=== PATIENT | male | born 1970 | race Caucasian/White ===

== ENCOUNTER 2018-09-08 17:42 | Outpatient (REF) | payer BC, SELFPAY ==
[2018-09-08 21:56] LABS: ALT 36 U/L (12-78); Alkaline Phosphatase 66 U/L (46-116); Anion Gap 9.4 mmol/L (3-11); BUN 18 mg/dL (7-18); Bilirubin, Total 0.5 mg/dL (0.2-1.0); CO2 29.6 mmol/L (21.0-32.0); CREATININE 0.93 mg/dL (0.70-1.30); Calcium 8.5 mg/dL (8.5-10.1); Chloride 103 mmol/L (98-107); Folate 17.1 ng/mL (8.6-20.0); Glucose 155 mg/dL (70-100); Sodium 142 mmol/L (136-145); Total Protein 7.3 g/dL (6.4-8.2)
[2018-09-08 21:57] LABS: Hemoglobin A1C 6.4 % (4.5-6.2)
[2018-09-08 22:28] LABS: ESR 12 MM/HR (0-15)
[2018-09-08 23:08] LABS: Vitamin B12 441 pg/mL (193-986)
[2018-09-08 23:52] LABS: AST 23 U/L (15-37); C-Reactive Protein 0.51 mg/dL (0.0-0.3)
== END 2018-09-08 18:02 ==
LOC: NCHCN 17:42
PROVIDERS: PCP Internal Medicine; Visit Provider Nurse Practitioner Family
DX: G62.89 Other specified polyneuropathies (principal)
CPT/HCPCS: 80053; 85652; 82607; 82746; 83036; 84443; 86140

== ENCOUNTER 2018-09-19 14:10 | Outpatient (REF) | payer BC, SELFPAY ==
[2018-09-19 21:46] LABS: Abs Immature Grans 0.03 k/cumm (0.0-0.09); Absolute Basophil Count 0.01 k/cumm (0.0-0.2); Absolute Eosinophil Count 0.03 k/cumm (0.0-0.7); Absolute Lymphocyte Count 1.79 k/cumm (1.2-3.4); Absolute Monocyte Count 0.52 k/cumm (0.11-0.7); Absolute Neutrophil Count 5.01 k/cumm (1.2-6.7); Basophils % 0.1; Eosinophils % 0.4; HCT 39.5 % (40.0-50.0); HGB 13.8 g/dL (13.5-17.5); Immature Grans % 0.4; Lymphocytes % 24.2; Mean Corp. HGB Concentration 34.9 g/dL (32.0-36.0); Mean Corpuscular Hemoglobin 30.1 pg (27.0-33.0); Mean Corpuscular Volume 86.1 fL (80-95); Mean Platelet Volume 12.1 fL (8.0-11.0); Neutrophils % 67.9; Platelet Count 259 x1000/uL (130-400); RBC 4.59 m/cumm (4.50-6.00); RBC Distribution Width 13.4 % (11.8-14.1); White Blood Cell Count 7.39 k/cumm (4.4-10.8)
== END 2018-09-19 14:30 ==
LOC: NCHCN 14:10
PROVIDERS: PCP Internal Medicine; Visit Provider Nurse Practitioner Family
DX: G62.9 Polyneuropathy, unspecified (principal)
CPT/HCPCS: 85025

== ENCOUNTER 2019-01-12 12:01 | Outpatient (REF) | payer BC, SELFPAY ==
[2019-01-12 21:37] LABS: Abs Immature Grans 0.02 k/cumm (0.0-0.09); Absolute Basophil Count 0.01 k/cumm (0.0-0.2); Absolute Eosinophil Count 0.06 k/cumm (0.0-0.7); Absolute Lymphocyte Count 1.88 k/cumm (1.2-3.4); Absolute Monocyte Count 0.61 k/cumm (0.11-0.7); Absolute Neutrophil Count 5.49 k/cumm (1.2-6.7); Basophils % 0.1; Eosinophils % 0.7; HCT 43.9 % (40.0-50.0); HGB 14.9 g/dL (13.5-17.5); Immature Grans % 0.2; Lymphocytes % 23.3; Mean Corp. HGB Concentration 33.9 g/dL (32.0-36.0); Mean Corpuscular Hemoglobin 29.2 pg (27.0-33.0); Mean Corpuscular Volume 85.9 fL (80-95); Mean Platelet Volume 12.5 fL (8.0-11.0); Monocytes % 7.6; Neutrophils % 68.1; Platelet Count 264 x1000/uL (130-400); RBC 5.11 m/cumm (4.50-6.00); RBC Distribution Width 13.4 % (11.8-14.1); White Blood Cell Count 8.07 k/cumm (4.4-10.8)
[2019-01-12 22:07] LABS: ALT 26 U/L (12-78); AST 15 U/L (15-37); Albumin 4.4 g/dL (3.4-5.0); Alkaline Phosphatase 61 U/L (46-116); Anion Gap 8.9 mmol/L (3-11); BUN 17 mg/dL (7-18); Bilirubin, Total 0.4 mg/dL (0.2-1.0); C-Reactive Protein 0.19 mg/dL (0.0-0.3); CO2 30.1 mmol/L (21.0-32.0); CREATININE 0.91 mg/dL (0.70-1.30); Calcium 9.8 mg/dL (8.5-10.1); Chloride 103 mmol/L (98-107); Glucose 92 mg/dL (70-100); Potassium 4.2 mmol/L (3.5-5.1); Sodium 142 mmol/L (136-145)
[2019-01-12 22:19] LABS: ESR 5 MM/HR (0-15)
[2019-01-16 09:43] LABS: Anaplasma phagocytophilum Negative (Negative); B. miyamotoi PCR Negative (Negative); Babesia divergens/MO-1 Negative (Negative); Babesia duncani Negative (Negative); Babesia microti Negative (Negative); Ehrlichia chaffeensis Negative (Negative); Ehrlichia ewingii/canis Negative (Negative); Ehrlichia muris eauclairensis Negative (Negative)
[2019-01-16 11:52] LABS: Lyme Ab w Rflx to Lyme Confirm Negative
== END 2019-01-12 12:21 ==
LOC: NCHCN 12:01
PROVIDERS: PCP Internal Medicine; Visit Provider Family Medicine
DX: R53.83 Other fatigue (principal); R51 Headache; R50.9 Fever, unspecified
CPT/HCPCS: 80053; 85652; 84443; 85025; 86140; 86618; 87798

== ENCOUNTER 2019-04-12 09:24 | Outpatient (REF) | payer BC, SELFPAY ==
[2019-04-12 22:52] LABS: COMMENT (LAB VIEW ONLY) 105.94 mg/dL; Microalb ug/mg Crea 8.1 ug/mg Cr
== END 2019-04-12 09:44 ==
LOC: NCHCN 09:24
PROVIDERS: PCP Internal Medicine; Visit Provider Internal Medicine
DX: R73.03 Prediabetes (principal)
CPT/HCPCS: 82043; 82570

== ENCOUNTER 2020-01-01 09:16 | Outpatient (REF) | payer BC, SELFPAY ==
[2020-01-01 21:55] LABS: Anion Gap 9.4 mmol/L (3-11); BUN 16 mg/dL (7-18); CO2 29.6 mmol/L (21.0-32.0); CREATININE 0.96 mg/dL (0.70-1.30); Calcium 9.4 mg/dL (8.5-10.1); Calculated LDL 151 mg/dL (<100); Chloride 102 mmol/L (98-107); Cholesterol 216 mg/dL (<200); Glucose 140 mg/dL (74-106); HDL Cholesterol 26 mg/dL (40-60); Potassium 3.9 mmol/L (3.5-5.1); Sodium 141 mmol/L (136-145); Triglyceride 198 mg/dL (<150)
[2020-01-01 21:56] LABS: Hemoglobin A1C 6.7 % (3.8-5.6)
== END 2020-01-01 09:36 ==
LOC: NCHCN 09:16
PROVIDERS: PCP Internal Medicine; Visit Provider Internal Medicine
DX: R73.03 Prediabetes (principal); I10 Essential (primary) hypertension; E66.9 Obesity, unspecified; Z13.220 Encounter for screening for lipoid disorders
CPT/HCPCS: 80048; 80061; 83036

== ENCOUNTER 2020-02-09 09:48 | Outpatient (REF) | payer BC, SELFPAY ==
[2020-02-09 20:33] LABS: Abs Immature Grans 0.02 k/cumm (0.0-0.09); Absolute Basophil Count 0.02 k/cumm (0.0-0.2); Absolute Eosinophil Count 0.06 k/cumm (0.0-0.7); Absolute Lymphocyte Count 1.58 k/cumm (1.2-3.4); Absolute Monocyte Count 0.52 k/cumm (0.11-0.7); Absolute Neutrophil Count 5.61 k/cumm (1.2-6.7); Basophils % 0.3; Eosinophils % 0.8; HCT 42.3 % (40.0-50.0); HGB 14.6 g/dL (13.5-17.5); Immature Grans % 0.3 %; Lymphocytes % 20.2; Mean Corp. HGB Concentration 34.5 g/dL (32.0-36.0); Mean Corpuscular Hemoglobin 29.7 pg (27.0-33.0); Mean Platelet Volume 12.3 fL (8.0-11.0); Monocytes % 6.7; Neutrophils % 71.7; Platelet Count 265 x1000/uL (130-400); RBC 4.92 m/cumm (4.50-6.00); RBC Distribution Width 13.5 % (11.8-14.1); White Blood Cell Count 7.81 k/cumm (4.4-10.8)
[2020-02-09 21:12] LABS: ALT 33 U/L (16-63); AST 12 U/L (15-37); Albumin 4.3 g/dL (3.4-5.0); Alkaline Phosphatase 62 U/L (46-116); Anion Gap 9.7 mmol/L (3-11); BUN 25 mg/dL (7-18); Bilirubin, Total 0.4 mg/dL (0.2-1.0); CO2 29.3 mmol/L (21.0-32.0); CREATININE 0.96 mg/dL (0.70-1.30); Calcium 9.1 mg/dL (8.5-10.1); Chloride 101 mmol/L (98-107); Cholesterol 216 mg/dL (<200); Glucose 176 mg/dL (74-106); HDL Cholesterol 24 mg/dL (40-60); Potassium 3.9 mmol/L (3.5-5.1); Sodium 140 mmol/L (136-145); TSH 1.71 uIU/mL (0.36-3.74); Total Protein 7.4 g/dL (6.4-8.2); Triglyceride 473 mg/dL (<150)
[2020-02-09 21:32] LABS: LDL CHOLESTEROL 139 mg/dL (<100)
[2020-02-09 21:42] LABS: Creatine Kinase 196 U/L (39-308)
== END 2020-02-09 10:08 ==
LOC: NCHCN 09:48
PROVIDERS: PCP Internal Medicine; Visit Provider Internal Medicine
DX: M62.81 Muscle weakness (generalized) (principal); R53.83 Other fatigue
CPT/HCPCS: 80053; 80061; 82550; 83721; 84443; 85025

== ENCOUNTER 2020-05-15 21:54 | Outpatient (REF) | payer BC, SELFPAY ==
[2020-05-15 21:52] LABS: Calculated LDL 96 mg/dL (<100); Cholesterol 160 mg/dL (<200); HDL Cholesterol 27 mg/dL (40-60); Triglyceride 187 mg/dL (<150)
== END 2020-05-15 22:14 ==
LOC: NCHCN 21:54
PROVIDERS: PCP Internal Medicine; Visit Provider Internal Medicine
DX: E11.9 Type 2 diabetes mellitus without complications (principal); E78.5 Hyperlipidemia, unspecified; I10 Essential (primary) hypertension
CPT/HCPCS: 80061; 83036

== ENCOUNTER 2020-06-10 02:16 | Outpatient (CLI) | payer BC, SELFPAY ==
--- NOTE | 2020-06-10 13:00 | NS.NUTBLAN_ITS ---
50 y/o male referred by [facility] / [facility] for DM2 and obesity. He has concerns about elevated BG levels which have been in the low 200's. He is 152% of IBW with BMI 36.4 indicating obesity. He has had recent weight loss of ~ 9lbs. r/t his daily walking routine and the physical nature of his occupation. He expressed that he gets very good support from his at home with his diet but that he tends to eat some foods high in CHO's when he is working or on the road. He stated that he had a boiled egg and a hand full of peanuts for lunch along with some processed peanut butter stuffed pretzel snacks. Glucometer reading at office visit today showed BG 180. He is currently on 500mg metformin 1x/day. Giles reports that he likes snacking and does like guyanese fries and often will get a creamy cone at his relatives snack bar near his home. Intervention: Provided education on CHO counting and recommended that he keep his CHO intake to <60g per meal period and that he consume protein whenever he has any CHO to offset potential BG spikes. Reviewed the difference between simple and complex CHO's and the importance of fiber in helping to maintain BG levels in good range. Reviewed the goals for A1c and BG levels. Provided literature on all the aforementioned education. Explained best times to take his readings and also to make sure he calibrates his own glucometer for accuracy using manufacturers specifications. This RD showed him how to use and recommended that he put the carbs and cals sedrick on his phone to help with better comprehension of portion sizes and CHO content. Provided resources for menu planning and how to achieve satiety with nutrient dense, fresh, whole foods and to have a healthy snack before bed to limit glycogen conversion in the liver which may be affecting his am FBG's. Suggested that he consume [id number] k/ida/day to help with weight loss. 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 Provided 7 day BG and food record form to facilitate mindfulness and better understand relationship between food choices and BG levels. Explained unintended consequences of consistently high BG in PWD's. Monitor and Evaluation: Giles will send photo of his BG and food record after one week and we will discuss results. He will continue his walking routine and use the principals of CHO counting, whole , fresh home cooked foods, and limit CHO's to <60g per esperanza period to help with BG levels and weight loss.
== END 2020-06-10 02:36 ==
PROVIDERS: PCP Internal Medicine; Visit Provider Internal Medicine
DX: E11.9 Type 2 diabetes mellitus without complications (principal); E66.9 Obesity, unspecified; Z79.84 Long term (current) use of oral hypoglycemic drugs; Z71.3 Dietary counseling and surveillance
CPT/HCPCS: 97802

== ENCOUNTER 2020-10-21 20:55 | Outpatient (REF) | payer BC, SELFPAY ==
[2020-10-24 16:45] LABS: Patient Race White; SARS-CoV-2 RNA Undetected (Undetected); SARS-CoV-2 Specimen Source Nasal
== END 2020-10-21 21:15 ==
LOC: NCHCN 20:55
PROVIDERS: PCP Internal Medicine; Visit Provider Internal Medicine
DX: J06.9 Acute upper respiratory infection, unspecified (principal)
CPT/HCPCS: U0003

== ENCOUNTER 2020-12-02 10:12 | Outpatient (REF) | payer BC, SELFPAY ==
[2020-12-02 14:06] LABS: Anion Gap 9.8 mmol/L (3-11); BUN 24 mg/dL (7-18); CO2 28.2 mmol/L (21.0-32.0); CREATININE 1.06 mg/dL (0.70-1.30); Calcium 9.5 mg/dL (8.5-10.1); Chloride 104 mmol/L (98-107); Glucose 132 mg/dL (74-106); Sodium 142 mmol/L (136-145)
== END 2020-12-02 10:32 ==
LOC: NCHCN 10:12
PROVIDERS: PCP Internal Medicine; Visit Provider Internal Medicine
DX: E11.9 Type 2 diabetes mellitus without complications (principal); I10 Essential (primary) hypertension
CPT/HCPCS: 80048; 83036

== ENCOUNTER 2021-03-10 03:33 | Outpatient (CLI) | payer BC, SELFPAY ==
[2021-03-10 10:50] LABS: Source Nasal/Nares
[2021-03-10 19:02] LABS: COVID-19 PCR Negative (Negative)
== END 2021-03-10 03:34 | disposition home or self-care (01) ==
LOC: LBO 03:33
PROVIDERS: PCP Internal Medicine; Visit Provider Nurse Practitioner
DX: Z20.828 Contact with and (suspected) exposure to other viral communicable diseases (principal); Z01.818 Encounter for other preprocedural examination
CPT/HCPCS: 87635

== ENCOUNTER 2022-01-14 22:10 | Outpatient (REF) | payer BC, SELFPAY ==
[2022-01-14 22:31] LABS: ALT 40 U/L (16-63); AST 22 U/L (15-37); Albumin 4.9 g/dL (3.4-5.0); Alkaline Phosphatase 73 U/L (46-116); Anion Gap 10.3 mmol/L (3-11); BUN 17 mg/dL (7-18); Bilirubin, Total 0.8 mg/dL (0.2-1.0); CO2 29.7 mmol/L (21.0-32.0); CREATININE 0.9 mg/dL (0.70-1.30); Calcium 9.8 mg/dL (8.5-10.1); Chloride 100 mmol/L (98-107); Cholesterol 203 mg/dL (<200); Glucose 174 mg/dL (74-106); HDL Cholesterol 34 mg/dL (40-60); Potassium 3.5 mmol/L (3.5-5.1); Sodium 140 mmol/L (136-145); Total Protein 8.5 g/dL (6.4-8.2); Triglyceride 463 mg/dL (<150)
[2022-01-14 22:43] LABS: LDL CHOLESTEROL 115 mg/dL (<100)
== END 2022-01-14 22:11 | disposition home or self-care (01) ==
LOC: NCHCN 22:10
PROVIDERS: PCP Internal Medicine; Visit Provider Internal Medicine
DX: E11.9 Type 2 diabetes mellitus without complications (principal); I10 Essential (primary) hypertension; E66.9 Obesity, unspecified; E78.5 Hyperlipidemia, unspecified
CPT/HCPCS: 80053; 80061; 83721; 84550

== ENCOUNTER 2022-04-17 18:42 | Outpatient (REF) | payer BC, SELFPAY ==
[2022-04-19 14:36] LABS: COVID-19 RT-PCR UVMMC Result Negative (Negative)
== END 2022-04-17 18:43 | disposition home or self-care (01) ==
LOC: NCHCN 18:42
PROVIDERS: PCP Internal Medicine; Visit Provider Internal Medicine
DX: Z20.822 Contact with and (suspected) exposure to COVID-19 (principal); J06.9 Acute upper respiratory infection, unspecified
CPT/HCPCS: U0003

== ENCOUNTER 2022-08-26 15:01 | Outpatient (REF) | payer BC, SELFPAY | END 2022-08-26 15:02 | disposition home or self-care (01) | LOC: NCHCN 15:01 | PROVIDERS: PCP Internal Medicine; Visit Provider Internal Medicine | DX: E11.9 Type 2 diabetes mellitus without complications (principal) | CPT/HCPCS: 82043; 82570 ==

== ENCOUNTER 2023-04-22 09:11 | Outpatient (REF) | payer BC, SELFPAY ==
[2023-04-22 14:27] LABS: ALT 33 U/L (16-63); AST 17 U/L (15-37); Alkaline Phosphatase 62 U/L (46-116); Anion Gap 8.2 mmol/L (3-11); BUN 19 mg/dL (7-18); Bilirubin, Total 0.5 mg/dL (0.2-1.0); CO2 27.8 mmol/L (21.0-32.0); Calcium 9.8 mg/dL (8.5-10.1); Calculated LDL 85 mg/dL (<100); Chloride 104 mmol/L (98-107); Cholesterol 183 mg/dL (<200); Estimated GFR 90.56 (mL/min/1.73m2); Glucose 184 mg/dL (74-106); HDL Cholesterol 32 mg/dL (40-60); Potassium 4.7 mmol/L (3.5-5.1); Sodium 140 mmol/L (136-145); Total Protein 7.6 g/dL (6.4-8.2); Triglyceride 334 mg/dL (<150)
[2023-04-22 14:47] LABS: Hemoglobin A1C 7.1 % (<5.7)
== END 2023-04-22 09:12 | disposition home or self-care (01) ==
LOC: NCHCN 09:11
PROVIDERS: PCP Internal Medicine; Visit Provider Internal Medicine
DX: E78.5 Hyperlipidemia, unspecified (principal); E11.9 Type 2 diabetes mellitus without complications; I10 Essential (primary) hypertension
CPT/HCPCS: 80053; 80061; 83036

== ENCOUNTER 2023-09-22 06:52 | Observation (INO) | payer BC, SELFPAY ==
[2023-09-22] VITALS (61 sets, daily range): BP systolic 125–176; BP diastolic 74–97; PULSE 57–75; RESP 8–22; TEMP 35.8–36.9; O2SAT 89–100
--- NOTE | 2023-09-22 06:45 | RT.EKG_ITS ---
APPROVED REPORT Exam: Resting ECG Reason for Exam: Chest Pain Patient Location: E HR:69 bpm ECG Measurements Heart Rate 69 AXIS MI 154 P 78 QRSd 109 QRS 42 QT 426 T 49 QTc 456 Conclusion Sinus rhythm...normal P axis, V-rate 60- 99
--- NOTE | 2023-09-22 07:33 | DI.CT_ITS ---
Exam(s) CT THORAX ABD/PEL CTA EXAM: CT THORAX ABD/PEL CTA CLINICAL HISTORY: chest pain. TECHNIQUE: Imaging Protocol: Axial computed tomography images with coronal and sagittal reformatted images were created and reviewed CONTRAST MATERIAL: Intravenous: Omnipaque 350 Contrast volume:100 ml Oral: None COMPARISON: No exams were available for comparison FINDINGS: CHEST: AORTA: Thoracic aorta exhibits normal diameter and no evidence of dissection. Abdominal aorta also u nremarkable for acute findings. Aortoiliac segments unremarkable. Common femoral arteries unremarka ble. PULMONARY ARTERIES: No evidence of intraluminal filling defects to suggest the presence of acute pulm onary emboli. LUNGS: There is an area of infiltrate in the medial basal segment of the right lower lobe.. There is noncalcified 8 by 6 mm nodule in the medial aspect of the right upper lobe posterior to the javier l evel.. There is also a small 4 millimeter noncalcified nodule in the lateral basal segment of the ri ght lower lobe. There is a tiny 2 millimeter peripheral nodule in the left upper lobe. No pleural e ffusions. MEDIASTINUM: There is no hilar nor mediastinal adenopathy. Visualized thyroid unremarkable. CARDIAC: Heart size is normal. There is no pericardial effusion. No shift of the interventricular s eptum. AORTA: Caliber of the thoracic aorta is within normal limits.There is no evidence of aortic dissectio n. ABDOMEN: There is no evidence of abdominal aortic aneurysm nor dissection.There is no aneurysmal dilatation of the common iliac arteries.The celiac and superior mesenteric arteries are patent.Renal arteries are patent. Inferior mesenteric artery is patent. Common and external iliac arteries are patent as are the internal iliac arteries. There is no ascites. LIVER: There is hepatomegaly and hepatic steatosis. No discrete focal hepatic lesions identified. N o dilated intrahepatic ducts. GALLBLADDER/BILIARY: No obvious gallbladder pathology. CBD is not dilated. PANCREAS: No evidence of pancreatic mass nor dilatation of the pancreatic duct. SPLEEN: Spleen is not enlarged. There are no intrasplenic lesions. Splenic and portal veins are vargas nt. ADRENALS: There are no significant adrenal masses. KIDNEYS: No cysts evident. No calculi nor hydronephrosis. No solid renal masses. LYMPH NODES: There is no retroperitoneal nor para-aortic adenopathy. No obvious mesenteric masses. ABDOMINAL WALL: No evidence of significant anterior abdominal wall hernia. GI: There is no evidence of bowel obstruction, free air, nor abscess.No ischemic appearing bowel loop s. PELVIS: LYMPH NODES: There is no intrapelvic nor inguinal adenopathy. GI: No evidence of appendicitis.No evidence of sigmoid diverticulitis. URINARY BLADDER: No calculi nor masses evident REPRODUCTIVE: Prostate size upper normal. Seminal vesicles unremarkable. OSSEOUS: No significant osseous lesions. No fractures. Chronic disc space narrowing L5-S1 level. Schmorl's node invagination in the superior endplate of L2 incidentally noted. IMPRESSION: 1. No evidence of aortic aneurysm nor dissection. No pericardial effusion 2. No evidence of pulmonary emboli. 3. There is an area of infiltrate in the medial aspect of the right lower lobe-medial basal segment. There are no pleural effusions. 4. There are few small noncalcified lung nodules as described above, largest being in the medial aspe ct of the right upper lobe and measuring 8 x 6 mm. Appropriate follow-up recommended. 5. Hepatomegaly and hepatic steatosis. No discrete focal hepatic lesions. Spleen size is normal. No ascites. RADIATION DOSE DELIVERED: Total DLP DATA REPOSITORY: All CT scans at this facility are submitted to the National Radiology Data Registry (NRDR) Dose Index Registry (DIR) with the [employer] (ACR). RADIATION OPTIMIZATION: All CT scans at this facility use at least one of these dose optimization te chniques: automated exposure control; mA and/or kV adjustment per patient size (includes targeted exa ms where dose is matched to clinical indication); or iterative reconstruction.
[2023-09-22 07:45] LABS: Abs Immature Grans 0.12 10^3/uL (0.0-0.06); Absolute Basophil Count 0.03 10^3/uL (0.0-0.2); Absolute Eosinophil Count 0.07 10^3/uL (0.0-0.7); Absolute Lymphocyte Count 1.99 10^3/uL (1.2-3.4); Absolute Monocyte Count 0.64 10^3/uL (0.1-0.8); Absolute Neutrophil Count 5.71 10^3/uL (1.2-6.7); Basophils % 0.4; Eosinophils % 0.8; HGB 14.5 g/dL (13.5-17.5); Immature Grans % 1.4; Lymphocytes % 23.2; MCHC 35.4 % (32.0-36.0); MCV 85 fL (80-95); MPV 11.6 fL (8.0-11.0); Monocytes % 7.5; Neutrophils % 66.7; Platelet Count 264 10^3/uL (130-400); RBC 4.84 10^6/uL (4.36-5.78); RDW 13.2 % (11.8-14.1); RDW-SD 40.7 fL; WBC 8.56 10^3/uL (4.4-10.8)
--- NOTE | 2023-09-22 08:01 | ED.GENADUL_ITS ---
Discharge Plan Disposition Patient Disposition: Admit to [facility] Discharge Details Chief Complaint: Chest Pain Clinical Impression: Indeterminate pulmonary nodules, Chest pain, Hypokalemia Primary Care Provider: Magdy Hollins ED Provider: Pedrito Melgar Home Meds and New Rx's Prescriptions: No Action buspirone 5 MG tablet 5 mg PO DAILY lamotrigine [Lamictal] 200 MG tablet 200 mg PO DAILY gabapentin 100 MG capsule 100 mg PO .QID PRN Patient Comments: pt states he takes 600mg BID 08/18/16 escitalopram oxalate [Lexapro] 20 MG tablet 20 mg PO HS methylphenidate HCl [Methylin] 5 MG tablet 5 mg PO TID cephalexin 500 MG capsule 500 mg PO QID Qty: 28 0RF atorvastatin 20 mg tablet 20 mg PO ONCE amlodipine 5 mg tablet 5 mg PO ONCE metformin 500 mg tablet 500 mg PO BID Patient Comments: Take 1 tablet by mouth twice a day losartan 100 mg tablet 100 mg PO ONCE Patient Comments: Take 1 tablet by mouth once a day methylphenidate HCl 36 mg tablet extended release 24hr 36 mg PO ONCE omeprazole 20 mg tablet,delayed release (DR/EC) 20 mg PO ONCE Patient Comments: Take 1 tablet by mouth once a day Trulicity 1.5 mg/0.5 mL pen injector 1.5 mg SUBCUT ONCE Medical Decision Making 810??53-year-old male with history of diabetes, hypertension, hyperlipidemia, anxiety, here with anterior chest pain that started 3 to 4 days ago and has persisted. Patient is hypertensive 176/91. He saturating well in no respiratory distress. EKG was reviewed and interpreted by me: Please report, nondiagnostic. No STEMI. Concern for ACS. Plan to trend troponin. Concern for potential aortic dissection and will perform CTA of the chest. 913 --initial labs reviewed: Troponin negative. Mild hypokalemia noted. I will give potassium chloride orally. CTA of the thorax, abdomen pelvis interpreted by radiology:1. No evidence of aortic aneurysm nor dissection. No pericardial effusion 2. No evidence of pulmonary emboli. 3. There is an area of infiltrate in the medial aspect of the right lower lobe- medial basal segment. There are no pleural effusions. 4. There are few small noncalcified lung nodules as described above, largest being in the medial aspect of the right upper lobe and measuring 8 x 6 mm. Appropriate follow-up recommended. 5. Hepatomegaly and hepatic steatosis. No discrete focal hepatic lesions. Spleen size is normal. No ascites. Plan for continued observation and delta troponin. -- I spoke with the hospitalist on-call, Dr. Marinelli, discussed ED presentation and course, he will admit the patient. Lab Data Lab results reviewed: Yes I reviewed the patient's lab results. Labs: Laboratory Tests Range/Units 09/22/23 09/22/23 09/22/23 07:37 10:28 12:08 WBC (4.4-10.8) 10^3/uL 8.56 RBC (4.36-5.78) 10^6/uL 4.84 Hgb (13.5-17.5) g/dL 14.5 Hct (40.0-50.0) % 41.0 MCV (80-95) fL 85 MCH (27.0-33.0) pg 30.0 MCHC (32.0-36.0) % 35.4 RDW (11.8-14.1) % 13.2 Plt Count (130-400) 10^3/uL 264 MPV (8.0-11.0) fL 11.6 H Immature Gran % 1.4 Neutrophils % 66.7 Lymphocytes % 23.2 Monocytes % 7.5 Eosinophils % 0.8 Basophils % 0.4 Nucleated RBC % (0.0-0.3) % 0.0 Absolute Neutrophils (1.2-6.7) 10^3/uL 5.71 Absolute Lymphocytes (1.2-3.4) 10^3/uL 1.99 Absolute Monocytes (0.1-0.8) 10^3/uL 0.64 Absolute Eosinophils (0.0-0.7) 10^3/uL 0.07 Absolute Basophils (0.0-0.2) 10^3/uL 0.03 Sodium (136-145) mmol/L 139 Potassium (3.5-5.1) mmol/L 3.3 L Chloride (98-107) mmol/L 100 Carbon Dioxide (21.0-32.0) mmol/L 28.3 Anion Gap (3-11) mmol/L 10.7 BUN (7-18) mg/dL 18 Creatinine (0.70-1.30) mg/dL 0.8 Est GFR (CKD-EPI 2020) (mL/min/1.73m2) 106.48 Glucose (74-106) mg/dL 237 H Calcium (8.5-10.1) mg/dL 10.1 Magnesium (1.8-2.4) mg/dL 1.8 Total Bilirubin (0.2-1.0) mg/dL 0.4 AST (15-37) U/L 6 L ALT (16-63) U/L 33 Alkaline Phosphatase (46-116) U/L 74 Troponin I (<or=60) ng/L < 50 < 50 Total Protein (6.4-8.2) g/dL 8.1 Albumin (3.4-5.0) g/dL 4.3 COVID-19 Source Nasal/Nares SARS-CoV-2 (PCR) (Negative) Negative HPI General Mode of arrival: ambulatory . Date/Time Provider Initiated Documentation: 09/22/23 07:04 . Limitations to Documentation: no limitations . Information obtained by: patient . HPI Narrative: 53-year-old male with history of hypertension, diabetes, hyperlipidemia, here with chief point of chest pain. Patient notes pain in his central and left anterior chest over the past 3 to 4 days that has been persistent and progressively worse. Pain is constantly present. He does note some shortness of breath. No associated leg swelling or calf pain. No recent immobility or surgery. No abdominal pain. Pain is described as a stiffness. Patient notes also generally not feeling well with fatigue. Related Data Home Medications Medication Instructions Recorded Confirmed buspirone 5 mg tablet 5 mg PO DAILY 09/05/13 09/22/23 escitalopram oxalate 20 mg tablet 20 mg PO HS 09/05/13 09/22/23 (Lexapro) gabapentin 100 mg capsule 100 mg PO .QID PRN 09/05/13 09/22/23 lamotrigine 200 mg tablet 200 mg PO DAILY 09/05/13 09/22/23 (Lamictal) cephalexin 500 mg capsule 500 mg PO QID #28 caps 08/18/16 09/22/23 methylphenidate HCl 5 mg tablet 5 mg PO TID 08/18/16 09/22/23 (Methylin) amlodipine 5 mg tablet 5 mg PO ONCE 09/22/23 09/22/23 atorvastatin 20 mg tablet 20 mg PO ONCE 09/22/23 09/22/23 dulaglutide 1.5 mg/0.5 mL 1.5 mg subcut ONCE 09/22/23 09/22/23 subcutaneous pen injector (Trulicity) losartan 100 mg tablet 100 mg PO ONCE 09/22/23 09/22/23 metformin 500 mg tablet 500 mg PO BID 09/22/23 09/22/23 methylphenidate HCl 36 mg 36 mg PO ONCE 09/22/23 09/22/23 tablet,extended release 24 hr omeprazole 20 mg tablet,delayed 20 mg PO ONCE 09/22/23 09/22/23 release Previous Rx's Medication Instructions Recorded cephalexin 500 mg capsule 500 mg PO QID #28 caps 08/18/16 Allergies Allergy/AdvReac Type Severity Reaction Status Date / Time No Known Allergies Allergy Unverified 09/22/23 07:00 General Stated Complaint: Chest Pain GABBIE: 2 Review of Systems All systems reviewed & are unremarkable except as noted in HPI and below Constitutional Constitutional: Denies fever(s) and Reports lethargy Cardiovascular Cardiovascular: Reports as per HPI and Reports dyspnea Respiratory Respiratory: Reports dyspnea PFSH All Active Problems (Updated 09/22/23 @ 13:15 by Pedrito Melgar MD) Hypokalemia (Acute) Chest pain (Acute) Indeterminate pulmonary nodules (Acute) Social History Smoking/Tobacco Use Status: Former Tobacco Use Smoking risk assessment performed?: Yes Alcohol Intake: current Alcohol Intake frequency: a few times a week Alcohol type: beer and hard liquor Drug use: Never Substance use type: does not use Housing: house Do you feel safe at home: Yes Do you feel safe in your relationship?: Yes Exam Const General: cooperative and no acute distress HENMT Mouth: moist mucous membranes Eyes Conjunctivae: normal conjunctivae Sclera: normal sclerae Neck Neck: trachea midline and supple Resp Auscultation: clear to auscultation bilaterally, no rales, no rhonchi and no wheezes Cardio Rate: regular rate and not tachycardic Rhythm: regular rhythm GI Palpation: soft, not firm, no guarding, no masses, not rigid and nontender Skin General skin exam: no rashes or lesions noted Neuro General: patient alert, patient awake and tone normal Extrem General: no calf tenderness and no edema Psych Appearance: grossly normal Mental Status: mental status grossly normal Course Vital Signs Vital signs: Vital Signs Pulse Oximetry 97 09/22/23 06:55 Pulse 67 09/22/23 06:59 Pulse 67 09/22/23 07:01 Respiratory Rate 14 09/22/23 07:07 Respiratory Effort Normal 09/22/23 07:07 Respiratory Depth Normal 09/22/23 07:07 Respiratory Pattern Normal 09/22/23 07:07 Blood Pressure 176/91 H 09/22/23 06:59 Blood Pressure Mean 118 09/22/23 06:57 Blood Pressure Position Supine 09/22/23 06:59 Pulse Oximetry 98 09/22/23 07:01 Oxygen Delivery Method Room Air 09/22/23 06:59 Oxygen Flow Rate 0 09/22/23 06:59 Pain Level 5 09/22/23 06:59 Lab/Test Results Lab/Test Results: Laboratory Tests Range/Units 09/22/23 07:37 WBC (4.4-10.8) 10^3/uL 8.56 RBC (4.36-5.78) 10^6/uL 4.84 Hgb (13.5-17.5) g/dL 14.5 Hct (40.0-50.0) % 41.0 MCV (80-95) fL 85 MCH (27.0-33.0) pg 30.0 MCHC (32.0-36.0) % 35.4 RDW (11.8-14.1) % 13.2 Plt Count (130-400) 10^3/uL 264 MPV (8.0-11.0) fL 11.6 H Immature Gran % 1.4 Neutrophils % 66.7 Lymphocytes % 23.2 Monocytes % 7.5 Eosinophils % 0.8 Basophils % 0.4 Nucleated RBC % (0.0-0.3) % 0.0 Absolute Neutrophils (1.2-6.7) 10^3/uL 5.71 Absolute Lymphocytes (1.2-3.4) 10^3/uL 1.99 Absolute Monocytes (0.1-0.8) 10^3/uL 0.64 Absolute Eosinophils (0.0-0.7) 10^3/uL 0.07 Absolute Basophils (0.0-0.2) 10^3/uL 0.03 PAWSS Have you Been Recently Intoxicated or Drunk Within the Last 30 days?: No Have you Ever Experienced Previous Episodes of Alcohol Withdrawal?: No Have you ever Experienced Withdrawal Seizures?: No Have you ever Experienced Delirium Tremens(DT)s?: No Have you ever undergone Alcohol Rehabilitation Treatment (i.e, inpt ot outpatient treatment programs)?: No Have you ever Experienced Blackouts?: No Have you ever Combined Alcohol with other Downers within the last 90 days?: No Have you ever Combined Alcohol with any other Substance of Abuse during the last 90 days?: No Positive Blood Alcohol level on Presentation? [PCS.BAL]: No Evidence of Increased Autonomic Activity (i.e. HR>120, tremor, sweating, agitation, nausea)?: No Result: 0
[2023-09-22] MEDS: Normal Saline - Diluent 50 ML VIAL IJ (08:09)
[2023-09-22] MEDS: Omnipaque 350 MG/ML 500 ML BTL-Imaging package IJ (08:11)
[2023-09-22 08:13] LABS: ALT 33 U/L (16-63); AST 6 U/L (15-37); Albumin 4.3 g/dL (3.4-5.0); Alkaline Phosphatase 74 U/L (46-116); Anion Gap 10.7 mmol/L (3-11); BUN 18 mg/dL (7-18); Bilirubin, Total 0.4 mg/dL (0.2-1.0); CO2 28.3 mmol/L (21.0-32.0); CREATININE 0.8 mg/dL (0.70-1.30); Calcium 10.1 mg/dL (8.5-10.1); Chloride 100 mmol/L (98-107); Estimated GFR 106.48 (mL/min/1.73m2); Glucose 237 mg/dL (74-106); Magnesium 1.8 mg/dL (1.8-2.4); Potassium 3.3 mmol/L (3.5-5.1); Sodium 139 mmol/L (136-145); Total Protein 8.1 g/dL (6.4-8.2); Troponin I < 50 ng/L (<or=60)
[2023-09-22 10:58] LABS: Troponin I < 50 ng/L (<or=60)
[2023-09-22] MEDS: Aspirin 325 MG TAB PO (12:08)
[2023-09-22 12:15] LABS: Source Nasal/Nares
[2023-09-22 12:52] LABS: COVID-19 PCR Negative (Negative)
[2023-09-22] MEDS: Potassium Chloride 20 MEQ TABCR PO ×2 (13:22→20:31)
--- NOTE | 2023-09-22 13:53 | W.PM.HP.N ---
Date of service: 09/22/23 Time of Service: 13:53 Assessment and Plan Assessment and plan (1) Chest pain: Status: Acute Assessment and plan: Telemetry Nitroglycerin, EKG and serial troponin levels Cardiac echo Stress test APAP 650 mg oral Q 6 schedule Qualifiers: Chest pain type: unspecified Qualified Code(s): R07.9 - Chest pain, unspecified (2) Hypokalemia: Status: Acute Assessment and plan: Replete and BMP in AM Magnesium is also monitored (3) Indeterminate pulmonary nodules: Status: Acute Assessment and plan: considering a pulmonary consult if this is a new finding; might be done outpatient (4) Hypertension: Status: Chronic Assessment and plan: Continue Norvasc Qualifiers: Hypertension type: unspecified Qualified Code(s): I10 - Essential (primary) hypertension (5) Diabetes mellitus: Status: Chronic Assessment and plan: Continue Dulaglutide FSBG with ss insulin coverage Metforming on hold X 48 hours Qualifiers: Diabetes mellitus type: type 2 (6) Hyperlipidemia: Status: Acute Assessment and plan: contiunue Atorvastatin Qualifiers: Hyperlipidemia type: unspecified Qualified Code(s): E78.5 - Hyperlipidemia, unspecified (7) GERD (gastroesophageal reflux disease): Status: Chronic Assessment and plan: Continue Omeprazole PRN Qualifiers: Esophagitis presence: without esophagitis Qualified Code(s): K21.9 - Gastro-esophageal reflux disease without esophagitis (8) On deep vein thrombosis (DVT) prophylaxis: Status: Deleted Assessment and plan: On lovenox SC (9) Discharge planning issues: Status: Deleted Assessment and plan: D/c home w/o needs History of Present Illness History of Present Illness Chief Complaint: Chest pain Narrative: This 53-year-old male patient with history of diabetes, hypertension, hyperlipidemia, anxiety presented in the ED at [facility] today for intermittent anterior chest pain that started 3 to 4 days ago and has persisted. On arrival, the patient was hypertensive 176/91, with adequate saturation and no respiratory distress. EKG was non-diagnostic and no STEMI, labs were reviewed and unremarkable, troponin negative X2. The CTA chest, abdomen and pelvis was unremarkable except for minimal infiltrate to right lower lobe basal medial membrane without pleural effusions.? The hospitalist was called and the patient was admitted to the medical surgical floor with telemetry for evaluation and management of chest pain ruling out myocardial infarction. Review of Systems Constitutional Constitutional: Reports as per HPI, Denies anorexia, Reports body ache(s), Denies chills, Denies fatigue, Denies fever(s), Denies lethargy and Denies poor appetite Eyes Eyes: Denies blurry vision and Denies change in vision ENT Ears, Nose, Mouth, and Throat: Denies dysphagia, Denies vertigo, Denies dizziness, Denies disequilibrium, Denies throat swelling and Denies tongue swelling Cardiovascular Cardiovascular: Reports as per HPI, Reports chest pain (increased with coughing ), Reports chest pain with activity (stiffness like pain more in AM and decreases later in the day ) and Denies dyspnea Respiratory Respiratory: Reports as per HPI, Denies cough, Denies dyspnea and Denies wheezing Gastrointestinal Gastrointestinal: Denies dysphagia Musculoskeletal Musculoskeletal: Reports arthralgias and Reports stiffness Integumentary/Breasts Skin/Breast: Denies bleeding lesions and Denies changing lesions Neurologic Neurologic: Denies vertigo, Denies dizziness, Denies memory loss and Denies disequilibrium Psychiatric Psychiatric: Reports anxiety, Denies memory loss and Denies mood swings Endocrine Endocrine: Denies fatigue Hematologic/Lymphatic Hematologic/Lymphatic: Denies easy bleeding and Denies easy bruising Allergic/Immunologic Allergic/Immunologic: Denies throat swelling, Denies tongue swelling and Denies wheezing PFSH All Active Problems (Updated 09/24/23 @ 00:04 by OBDULIA MARROQUIN) H/O left knee surgery (Acute) GERD (gastroesophageal reflux disease) (Chronic) Hyperlipidemia (Acute) Diabetes mellitus (Chronic) Hypertension (Chronic) Hypokalemia (Acute) Chest pain (Acute) Indeterminate pulmonary nodules (Acute) Medical History (Updated 09/24/23 @ 00:04 by OBDULIA MARROQUIN) Traumatic head injury with multiple lacerations Family History (Updated 09/22/23 @ 17:43 by Giselle Cano APRN) Mother No problems noted. Social History Smoking/Tobacco Use Status: Former Tobacco Use Smoking risk assessment performed?: Yes Alcohol Intake: current Alcohol Intake frequency: a few times a week Alcohol type: beer and hard liquor Drug use: Never Substance use type: does not use Housing: house Do you feel safe at home: Yes Do you feel safe in your relationship?: Yes Meds Allergies and Home Medications Allergies Allergy/AdvReac Type Severity Reaction Status Date / Time No Known Allergies Allergy Unverified 09/22/23 07:00 Home Medications Medication Instructions Recorded Confirmed Type escitalopram oxalate 20 mg tablet 20 mg PO HS 09/05/13 09/22/23 History (Lexapro) lamotrigine 200 mg tablet 200 mg PO DAILY 09/05/13 09/22/23 History (Lamictal) amlodipine 5 mg tablet 5 mg PO DAILY 09/22/23 09/22/23 History atorvastatin 20 mg tablet 20 mg PO DAILY 09/22/23 09/22/23 History buspirone 30 mg tablet 30 mg PO DAILY 09/22/23 09/22/23 History chlorthalidone 25 mg tablet 25 mg PO DAILY 09/22/23 09/22/23 History dulaglutide 3 mg/0.5 mL 3 mg subcut Q7D 09/22/23 09/22/23 History subcutaneous pen injector (Trulicity) gabapentin 300 mg capsule 300 mg PO QID 09/22/23 09/22/23 History losartan 100 mg tablet 100 mg PO DAILY 09/22/23 09/22/23 History metformin 500 mg tablet 500 mg PO BID 09/22/23 09/22/23 History methylphenidate HCl 36 mg 36 mg PO DAILY 09/22/23 09/22/23 History tablet,extended release 24 hr omeprazole 20 mg tablet,delayed 20 mg PO DAILY 09/22/23 09/22/23 History release Exam Narrative Exam Narrative: Constitutional The patient is lying in bed comfortable and cooperative during the interview, flushed. The patient is well groomed without acute distress and has obese body habitus HENMT: Head is atraumatic, normocephalic, no lymphadenopathy. Facial structures with normal appearance Eyes: Well aligned, intact ROM Neck: Normal ROM, no meningeal signs Neuro:alert and oriented to self, person, place, time and situation. No neurological focal deficit Chest:Chest is symmetrical and normal appearance, chest pain increased slightly with stretching Resp: Normal respiratory pattern, speaks in full sentences, unlabored breathing, clear lung bilaterally Cardio: SR 63,regular rhythm, S1, S2, no murmur, capillary refill<3 sec., bilateral radial and dorsalis pedis pulses are positive, palpable GI: Abdomen is not distended, soft and non tender, bowel sounds are present : Negative Costovertebral angle tenderness, no bladder distension Back/spine/Pelvis: No back tenderness, normal alignment Integumentary: No skin lesions or rash Extremities: strength 5/5 to bilateral lower and upper extremities Psych: RASS 0, congruent mood and normal affect. Results Labs 09/23/23 07:05 09/23/23 07:05 Labs: Laboratory Results - last 24 hr 09/22/23 09/22/23 09/22/23 07:37 10:28 12:08 WBC 8.56 RBC 4.84 Hgb 14.5 Hct 41.0 MCV 85 MCH 30.0 MCHC 35.4 RDW 13.2 Plt Count 264 MPV 11.6 H Immature Gran % 1.4 Neutrophils % 66.7 Lymphocytes % 23.2 Monocytes % 7.5 Eosinophils % 0.8 Basophils % 0.4 Nucleated RBC % 0.0 Absolute Neutrophils 5.71 Absolute Lymphocytes 1.99 Absolute Monocytes 0.64 Absolute Eosinophils 0.07 Absolute Basophils 0.03 Sodium 139 Potassium 3.3 L Chloride 100 Carbon Dioxide 28.3 Anion Gap 10.7 BUN 18 Creatinine 0.8 Est GFR (CKD-EPI 2020) 106.48 Glucose 237 H Calcium 10.1 Magnesium 1.8 Total Bilirubin 0.4 AST 6 L ALT 33 Alkaline Phosphatase 74 Troponin I < 50 < 50 Total Protein 8.1 Albumin 4.3 COVID-19 Source Nasal/Nares SARS-CoV-2 (PCR) Negative Last Vital Signs Pulse 62 09/22/23 13:16 Resp 10 L 09/22/23 13:16 BP 132/84 09/22/23 13:16 Pulse Ox 100 09/22/23 13:16 PAWSS Have you Been Recently Intoxicated or Drunk Within the Last 30 days?: No Have you Ever Experienced Previous Episodes of Alcohol Withdrawal?: No Have you ever Experienced Withdrawal Seizures?: No Have you ever Experienced Delirium Tremens(DT)s?: No Have you ever undergone Alcohol Rehabilitation Treatment (i.e, inpt ot outpatient treatment programs)?: No Have you ever Experienced Blackouts?: No Have you ever Combined Alcohol with other Downers within the last 90 days?: No Have you ever Combined Alcohol with any other Substance of Abuse during the last 90 days?: No Positive Blood Alcohol level on Presentation? [PCS.BAL]: No Evidence of Increased Autonomic Activity (i.e. HR>120, tremor, sweating, agitation, nausea)?: No Result: 0 Time Spent Time spent with Patient: >75 minutes Time was spent: preparing to see the patient(eg.review tests), ordering medications,tests, procedures, referring, communicating with other health residential care officer, indepentently interpreting results, counseling the patient and care coordination
[2023-09-22 14:32] LABS: Troponin I < 50 ng/L (<or=60)
[2023-09-22] MEDS: Enoxaparin 40 MG/0.4 ML SYR SC (17:30)
[2023-09-22] MEDS: Insulin Aspart 300 UNITS/3 ML PEN SC (17:31)
[2023-09-22] MEDS: Acetaminophen 500 MG TAB 1000 MG PO ×2 (18:16→23:37)
[2023-09-22 20:26] LABS: Troponin I < 50 ng/L (<or=60)
[2023-09-22] MEDS: Melatonin 3 MG TAB PO (20:32)
[2023-09-22] MEDS: Gabapentin 300 MG CAP 600 MG PO (20:32)
--- NOTE | 2023-09-23 | DI.US_ITS ---
APPROVED REPORT EXAM: Comprehensive 2D, Doppler, and color-flow Echocardiogram Patient Location: In-Patient Room/Bed: [address] Cooler: Kody Mcguire RDCS (AE) Indications: chest pain r/o IA Other Information Study Quality: Adequate. Technically limited study due to body habitus. Conclusion Normal left ventricular wall thickness and chamber size. Ejection fraction is 55 to 60%. Wall motio n is normal Normal right ventricular size and systolic function Both atria are normal in size There is no structural or hemodynamically significant valvular disease Wall motion Left Ventricle Left ventricle is mildly dilated. The left ventricular systolic function is normal. The left ventricu lar ejection fraction is within the normal range. There is normal left ventricular wall thickness. Th ere is normal LV segmental wall motion. There is no ventricular septal defect visualized. LVEF is 55- 60%. Right Ventricle The right ventricle is normal size. Right ventricular systolic function is grossly normal. Unable to assess PA pressure. Atria The left atrium size is normal. Right atrium is normal The interatrial septum is intact with no evide nce for an atrial septal defect. Aortic Valve The aortic valve is normal in structure. Aortic valve is probably trileaflet. There is no aortic valv ular stenosis. No aortic regurgitation is present. Mitral Valve The mitral valve is normal in structure. No evidence of mitral valve stenosis. There is no mitral aydin ve regurgitation noted. Tricuspid Valve The tricuspid valve is normal in structure. There is no tricuspid valve stenosis. Trace tricuspid reg urgitation. Pulmonic Valve The pulmonary valve is normal in structure. There is no pulmonic valvular stenosis. There is no pulmo maría valvular regurgitation. Great Vessels The aortic root is normal in size. The ascending aorta is normal in size. Aortic arch is normal in ca liber. IVC is normal in size and collapses >50% with inspiration. Pericardium There is no pericardial effusion. 2D Dimensions IVSD d PLAX 0.69 cm M: 0.6-1.2 Ao Root d 3.17 cm M: 3.1 - 3.7 LVPW d PLAX 0.75 cm M: 0.6 - 1.2 Ao Asc Diam d 3.22 cm M: 2.6 - 3.4 LVID d PLAX 6.24 cm M: 4.2 - 5.8 LVDs 4.22 cm M: 2.5 - 4.0 LV EF Teichholz 59.6 % FS 32.32 % LV EDV (Teich) 196.5 mL LV ESV (Teich) 79.5 mL Stroke Vol Index (Teich) 45.73 M-Mode TAPSE 1.54 cm (M/F) >1.7 Auto EF LV EDV A4C 103.1 mL LV EDV A2C 113.7 mL LV EDV BP 109.5 mL LV ESV A4C 47.8 mL LV ESV A2C 46.3 mL LV ESV BP 46.8 mL LVEF(%) A4C 53.7 % LVEF(%) A2C 59.2 % LVEF(%) BP 57.3 % LV SV A4C 55.3 ml LV SV A2C 67.4 ml LV SV BP 62.8 ml LV CO A4C 3.8 L/min LV CO A2C 4.8 L/min LV CO BP 4.3 L/min HR A4C 69.50 BPM HR A2C 70.56 BPM LV EDV Index (BP) LA Volume LA Length A4C 5.1 cm LA Length A2C LA Area A4C s 9.88 cm2 LA Area A2C s LA Vol A4C A-L 16.37 mL LA Vol A2C A-L LA Vol Biplane A-L LA Vol A4C MOD 15.5 mL LA Vol A2C MOD LA Vol BP MOD RA Volume RA Area A4C 15.8 cm2 RA ESV A4C (A-L) 48.3mL RA Vol/BSA A4C A-L RA Length A4C 4.4 cm RA ESV A4C (MOD) 45.6mL LV Diastology MV E' medial 0.077 (>0.07 m/s) MV E Vmax 0.48 (0.4-1.3 m/s) MV E/E' MED 6.20 (<14) MV A Vmax 0.55 (0.4-1.3 m/s) MV E' lateral 0.101 (>0.1 m/s) E/A Ratio 0.9 MV E/E' LAT 4.74 (<14) MV E' Average 0.089 m/s MV E/E'(average) 5.37 Aortic Valve AoV Vmax 0.82 m/s LVOT Vmax 0.94 m/s AoV Peak Grad 2.7 mmHg LVOT Peak Grad 3.6 mmHg AoV Area (Vmax) 4.26 cm2 LVOT VTI 0.205 m AoV VTI 0.160 m LVOT Mean Grad 1.9 mmHg AoV Mean Riaz. 0.59 m/s LVOT SV 75.72 mL AoV Mean Grad 1.6 mmHg LVOT Diam s 2.15 cm AoV Area (VTI) 4.73 cm2 Velocity Ratio 1.15 Mitral Valve MV DT 234 (160-240 msec) Pulmonary Valve PV Vmax 1.00 (0.5-1.5 m/s) RVOT Vmax 0.61 m/s PV Peak Grad 4.0 mmHg RVOT Peak Gr. 1.5 mmHg PV Mean Riaz 0.62 m/s RVOT VTI 0.120 m PV Mean Grad 1.9 mmHg RVOT Mean Gr. 0.6 mmHg
--- NOTE | 2023-09-23 | ETT_ITS ---
APPROVED REPORT Exam: Exercise Treadmill Patient Location: In-Patient Room/Bed: Stress Nurse: Fariha Vences RN Ordering Provider:HANK YAZMIN, Contact Number: [phone] BMI: 39.57 Baseline Rhythm: Sinus Rhythm Indications: Chest pain, Medical History Medical History: GERD, anxiety, depression, knee surgery Cardiac Medications: Amlodipine, atorvastatin, losartan Allergies: NKA Cardiac Risk Factors: HTN, HLD, diabetes, former smoker, obesity Previous Cardiac Procedures: None Pretest Chest Pain Characteristics: Minimal left sided chest ache Exercise History: Sedentary Physical Disabilities: Knees Lung Sounds: Fine crackles right base Heart Sounds: Regular Stress Test Details Test: Exercise stress testing was performed using a Yadiel protocol. Rest Stress HR Resting HR Supine: 74 bpm Max Heart Rate (APMHR): 168 bpm Resting HR Standin bpm Target HR (85% APMHR): 143 bpm Max HR Achieved: 126 bpm % of APMHR: 75 Recovery HR: 70 bpm HR response to stress: Blunted HR response to stress BP Resting BP Supine: 120/72 mmHg Resting BP Standin/72 mmHg Max BP: 170/70 mmHg Recovery BP: 126/78 mmHg BP response to stress: Normal blood pressure response to stress. ECG Resting ECG: Sinus Rhythm Ectopy: None Stress ECG: Sinus Tachycardia ST Change: Nondiagnostic low heart rate Arrhythmia: None Recovery ECG: Sinus Rhythm Recovery ST Change: Nondiagnostic low heart rate Recovery Arrhythmia: None Clinical Reason for Termination: Knee pain Stress Symptoms: Mild chest ache Exercise duration: 08 min56 sec Highest Stage Reached: Stage 3: 3.4 mph at 14% grade. Exercise capacity: 10 METs Angina Score: Non-Limiting Parker Treadmill Score: 4.7 Rate Pressure Product: [id number] Stress ECG Conclusion 1. Resting electrocardiogram was within normal limits 2. Patient exercised on the Yadiel protocol and completed a workload of 10 METS 3. Normal heart rate and blood pressure response to exercise. The patient achieved 75% of predicted heart rate for age 4. At that level of exercise and heart rate, there was no electrocardiographic evidence of myocardial ischemia 5. There were no dysrhythmias Parker Treadmill Score is 4.7 which is Moderate risk. Stress Test Summary STAGE Time (mins) Speed (mph) Grade (%) HR BP SpO2 SYMPTOMS METS Supine 74 120/72 98 Mild chest ache Standing 73 112/72 1 3 1.7 10 102 96 4.5 2 6 2.5 12 114 96 7 3 9 3.4 14 126 98 10 1 min recovery 107 170/70 98 3 min recovery 75 138/82 95 6 min recovery 70 126/78 95 Patient c/o mild chest discomfort at start of test. Noted in increased minimally with exercise. Pat ient unable to reach target heart rate due to knee pain.
[2023-09-23] MEDS: Acetaminophen 500 MG TAB 1000 MG PO ×2 (06:13→13:11)
[2023-09-23 07:25] VITALS: BP 132/79; PULSE 58; RESP 18; TEMP 35.9; O2SAT 96
[2023-09-23 07:32] LABS: HCT 41.3 % (40.0-50.0); HGB 14.4 g/dL (13.5-17.5); MCH 29.3 pg (27.0-33.0); MCHC 34.9 % (32.0-36.0); MCV 84 fL (80-95); MPV 11.4 fL (8.0-11.0); Platelet Count 252 10^3/uL (130-400); RBC 4.92 10^6/uL (4.36-5.78); RDW 13.2 % (11.8-14.1); RDW-SD 40.6 fL; WBC 7.37 10^3/uL (4.4-10.8)
[2023-09-23 08:02] LABS: Anion Gap 7.5 mmol/L (3-11); BUN 17 mg/dL (7-18); CO2 27.5 mmol/L (21.0-32.0); Calcium 9.5 mg/dL (8.5-10.1); Chloride 102 mmol/L (98-107); Estimated GFR 90.56 (mL/min/1.73m2); Glucose 163 mg/dL (74-106); Potassium 3.9 mmol/L (3.5-5.1); Sodium 137 mmol/L (136-145); Troponin I < 50 ng/L (<or=60)
[2023-09-23] MEDS: lamoTRIgine 100 MG TAB 200 MG PO (09:11)
[2023-09-23] MEDS: busPIRone 15 MG TAB 30 MG PO (09:11)
[2023-09-23] MEDS: amLODIPine 5 MG TAB PO (09:11)
[2023-09-23] MEDS: Omeprazole 20 MG CAPCR PO (09:11)
[2023-09-23] MEDS: Losartan 50 MG TAB 100 MG PO (09:11)
[2023-09-23] MEDS: Escitalopram 20 MG TAB PO (09:11)
[2023-09-23] MEDS: Atorvastatin 20 MG TAB PO (09:12)
[2023-09-23] MEDS: Gabapentin 300 MG CAP 600 MG PO (09:12)
[2023-09-23] MEDS: Potassium Chloride 20 MEQ TABCR PO (09:12)
[2023-09-23 11:08] VITALS: BP 128/79; PULSE 69; RESP 18; TEMP 36.5; O2SAT 96
--- NOTE | 2023-09-23 14:55 | CHAPLAIN ---
Giles was up in the chair waiting for a test at noon, when I visited this morning. He is hoping to be going home after that. He was expecting his to be in soon. I explained my role and offered support.
[2023-09-23 14:58] VITALS: BP 119/73; PULSE 67; RESP 19; TEMP 35.9; O2SAT 93
--- NOTE | 2023-09-23 15:10 | W.PM.DS.N ---
Date of service: 09/23/23 Time of Service: 15:10 DS: Diagnosis Discharge Diagnosis (1) Chest pain: Status: Acute (2) Hypokalemia: Status: Acute (3) Indeterminate pulmonary nodules: Status: Acute (4) Hypertension: Status: Chronic (5) Diabetes mellitus: Status: Chronic (6) Hyperlipidemia: Status: Acute (7) GERD (gastroesophageal reflux disease): Status: Chronic Discharge Plan Disposition Patient Disposition: Home Condition: Stable Discharge Details Reason For Visit: chest pain Admit Date/Time: 09/22/23 11:52 Admit Provider: Saúl Marinelli Attending Provider: Saúl Marinelli Primary Care Provider: Magdy Hollins Hospital Course Hospital Course: This is a 53-year-old male patient who presented to the emergency department with complaints of intermittent chest pain that has been occurring over the past few days. He states he woke up feeling like he had a pulled muscle in his mid chest that was not radiating anywhere and the pain improved actually when he took a deep breath. His work-up in the emergency department was unremarkable he had EKG with no ischemic changes troponin and serial troponins negative a bed request was made with hospitalist services to refer to observation overnight for rule out. We are able to get echocardiogram and stress test which were both unremarkable echocardiogram with no acute findings no wall motion abnormalities valvular disease etc. please see report for full details his stress test was also nonischemic. He is stable and ready for discharge to home he should follow-up with his primary care provider outpatient discharge discussed with Dr. Marinelli Home Meds and New Rx's Prescriptions: Continued lamotrigine [Lamictal] 200 MG tablet 200 mg PO DAILY escitalopram oxalate [Lexapro] 20 MG tablet 20 mg PO HS atorvastatin 20 mg tablet 20 mg PO DAILY amlodipine 5 mg tablet 5 mg PO DAILY metformin 500 mg tablet 500 mg PO BID Patient Comments: Take 1 tablet by mouth twice a day losartan 100 mg tablet 100 mg PO DAILY Patient Comments: Take 1 tablet by mouth once a day methylphenidate HCl 36 mg tablet extended release 24hr 36 mg PO DAILY omeprazole 20 mg tablet,delayed release (DR/EC) 20 mg PO DAILY Patient Comments: Take 1 tablet by mouth once a day buspirone 30 mg tablet 30 mg PO DAILY chlorthalidone 25 mg tablet 25 mg PO DAILY gabapentin 300 mg capsule 300 mg PO QID Trulicity 3 mg/0.5 mL pen injector 3 mg SUBCUT Q7D Patient Comments: INJECT 1 PEN SUBCUTANEOUSLY ONCE A WEEK Discharge Instructions Instructions: Chest Pain (DC) Additional Instructions: your stress test showed no evidence of myocardial ischemia. echocardiogram Conclusion Normal left ventricular wall thickness and chamber size. Ejection fraction is 55 to 60%. Wall motion is normal Normal right ventricular size and systolic function Both atria are normal in size There is no structural or hemodynamically significant valvular disease continue your usual home medication. Stand Alone Forms: Nursing Discharge Form Referrals: Kimberlyn Elaine NP [NURSE PRACTITIONER] - 10/04/23 9:00 am Activity:: Activity as Tolerated Equipment/Supplies:: No Equipment Needed Diet:: As Tolerated Discharge Orders Discharge Orders: Discharge Order (Routine); Ordered 09/23/23 Ordered By: Leonie Clayton Discharge Data Discharge Date/Time-TO BE ENTERED AT DEPARTURE: 09/23/23 16:34 Discharge Comment: home DS: Summary Time Spent with Patient providing and/or coordinating discharge services: Less than 30 minutes Status at Discharge Functional status at discharge: independent ambulation Overall status at discharge: patient is back to baseline Mental Status: mental status grossly normal Speech and Movement: speech and movement normal Mood: congruent mood Affect: normal affect Exam Const General: cooperative and no acute distress HENMT Mouth: moist mucous membranes Eyes Conjunctivae: normal conjunctivae Sclera: normal sclerae Neck Neck: trachea midline and supple Resp Auscultation: clear to auscultation bilaterally Cardio Rate: regular rate Rhythm: regular rhythm GI Palpation: soft and nontender Skin General skin exam: no rashes or lesions noted Neuro General: patient alert, patient awake and tone normal Extrem General: no calf tenderness and no edema Psych Appearance: grossly normal Mental Status: mental status grossly normal Speech and Movement: speech and movement normal Mood: congruent mood Affect: normal affect DS: Data Vitals/I&O Vitals and I&O: Vital Signs Temperature 35.9 C L 09/23/23 14:58 Temperature Source Tympanic 09/23/23 14:58 Pulse 67 09/23/23 14:58 Pulse Rhythm Regular 09/23/23 09:00 Pulse 63 09/22/23 13:16 Respiratory Rate 19 09/23/23 14:58 Respiratory Effort Normal, Non-Labored 09/23/23 09:00 Respiratory Depth Normal 09/23/23 09:00 Respiratory Pattern Normal 09/23/23 09:00 Blood Pressure 119/73 09/23/23 14:58 Blood Pressure Mean 95 09/22/23 13:16 Blood Pressure Position Supine 09/22/23 06:59 Pulse Oximetry 93 09/23/23 14:58 Oxygen Delivery Method Room Air 09/23/23 14:58 Oxygen Flow Rate 0 09/23/23 14:58 Pain Level 0 09/23/23 14:58 Comment At time of Q4 3pm vitals PT was feeling a little axnt. 09/22/23 15:19 Intake & Output 09/22/23 09/23/23 09/23/23 23:59 11:59 23:59 Intake Total 200 / 200 Balance 200 / 200 Intake: Oral 200 / 200 Other: Comment unmeasured void Voiding Methods Toilet Data Completed and Pending Labs on day of discharge: Labs from last 24 hours 09/23/23 09/22/23 07:05 20:00 WBC 7.37 RBC 4.92 Hgb 14.4 Hct 41.3 MCV 84 MCH 29.3 MCHC 34.9 RDW 13.2 Plt Count 252 MPV 11.4 H Sodium 137 Potassium 3.9 Chloride 102 Carbon Dioxide 27.5 Anion Gap 7.5 BUN 17 Creatinine 1.0 Est GFR (CKD-EPI 2020) 90.56 Glucose 163 H Calcium 9.5 Troponin I < 50 < 50 PFSH All Active Problems (Updated 09/22/23 @ 17:42 by Giselle Cano APRN) H/O left knee surgery (Acute) GERD (gastroesophageal reflux disease) (Chronic) Hyperlipidemia (Acute) Diabetes mellitus (Chronic) Hypertension (Chronic) Discharge planning issues (Acute) On deep vein thrombosis (DVT) prophylaxis (Acute) Hypokalemia (Acute) Chest pain (Acute) Indeterminate pulmonary nodules (Acute) Medical History (Updated 09/22/23 @ 17:42 by Giselle Cano APRN) Traumatic head injury with multiple lacerations Family History (Updated 09/22/23 @ 17:43 by Giselle Cano APRN) Mother No problems noted. Social History Smoking/Tobacco Use Status: Former Tobacco Use Smoking risk assessment performed?: Yes Alcohol Intake: current Alcohol Intake frequency: a few times a week Alcohol type: beer and hard liquor Drug use: Never Substance use type: does not use Housing: house Do you feel safe at home: Yes Do you feel safe in your relationship?: Yes Time Spent with Patient Time Spent with Patient: <45 minutes Time was spent: preparing to see the patient(eg.review tests), ordering medications,tests, procedures, indepentently interpreting results and counseling the patient
== END 2023-09-23 16:34 | disposition home or self-care (01) ==
LOC: ER 13:15 → MS 13:38
PROVIDERS: Nurse Practitioner Acute Care; Admitting Provider Internal Medicine; Emergency Provider Student in an Organized Health Care Education/Training Program; PCP Internal Medicine; Visit Provider Internal Medicine
DX: R07.9 Chest pain, unspecified (principal); I10 Essential (primary) hypertension; E87.6 Hypokalemia; K21.9 Gastro-esophageal reflux disease without esophagitis; E78.5 Hyperlipidemia, unspecified; E11.9 Type 2 diabetes mellitus without complications; F41.9 Anxiety disorder, unspecified; R91.8 Other nonspecific abnormal finding of lung field; Z79.899 Other long term (current) drug therapy; Z79.85 Long-term (current) use of injectable non-insulin antidiabetic drugs; Z79.84 Long term (current) use of oral hypoglycemic drugs
CPT/HCPCS: 00123; 71275; 80048; 80053; 85027; 87635; 93005; 99285; J1650; 74174; 83735; 84484; 85025; 93010; 93017; 93306; 99223; 99238; G0378

== ENCOUNTER → 2023-10-06 12:01 | Outpatient (CLI) | payer BC, SELFPAY ==
--- NOTE | 2023-10-06 | DI.RAD_ITS ---
Exam(s) XR CHEST 2V PA LATERAL EXAM: XR CHEST 2V PA LATERAL CLINICAL HISTORY: PULMONARY INFILTRATE, R91.8, F/U CT ON 09/22/2023 TECHNIQUE: 2D digital imaging was performed of the chest. Two images were obtained. PA and lateral views were obtained. COMPARISON: CR CHEST 2 VIEWS PA,LAT from 09/05/2013 FINDINGS: MEDIASTINUM: Normal. HEART: Normal. PULMONARY VASCULATURE: Normal. LUNGS: Clear. PLEURAL SPACE: No pleural effusion or pneumothorax. BONE:Within normal limits for the patient's age. OTHER FINDINGS:Normal. IMPRESSION: No acute pulmonary findings. DATA REPOSITORY: RADIATION DOSE DELIVERED:
== END ==
PROVIDERS: PCP Internal Medicine; Visit Provider Registered Nurse
DX: R91.8 Other nonspecific abnormal finding of lung field (principal)
CPT/HCPCS: 71046

== ENCOUNTER 2023-12-20 16:14 | Outpatient (REF) | payer BC, SELFPAY ==
[2023-12-20 21:11] LABS: COMMENT (LAB VIEW ONLY) 134.44 mg/dL; Microalb ug/mg Crea 18.8 ug/mg Cr
== END 2023-12-20 16:15 | disposition home or self-care (01) ==
LOC: NCHCN 16:14
PROVIDERS: PCP Internal Medicine; Visit Provider Internal Medicine
DX: E11.9 Type 2 diabetes mellitus without complications (principal)
CPT/HCPCS: 82043; 82570

== ENCOUNTER 2024-09-05 08:26 | Outpatient (REF) | payer BC, SELFPAY ==
[2024-09-05 16:13] LABS: ALT 31 U/L (16-63); AST 19 U/L (15-37); Albumin 4.1 g/dL (3.4-5.0); Alkaline Phosphatase 63 U/L (46-116); Anion Gap 11.7 mmol/L (3-11); BUN 16 mg/dL (7-18); Bilirubin, Total 0.66 mg/dL (0.2-1.0); CO2 29.3 mmol/L (21.0-32.0); CREATININE 1.1 mg/dL (0.70-1.30); Calcium 9.5 mg/dL (8.5-10.1); Chloride 103 mmol/L (98-107); Cholesterol 223 mg/dL (<200); Estimated GFR 80.27 (mL/min/1.73m2); Glucose 165 mg/dL (74-106); HDL Cholesterol 31 mg/dL (40-60); Sodium 144 mmol/L (136-145); Total Protein 7.6 g/dL (6.4-8.2); Triglyceride 561 mg/dL (<150)
[2024-09-05 18:15] LABS: LDL CHOLESTEROL 107 mg/dL (<100)
[2024-09-05 18:16] LABS: HCT 42.6 % (40.0-50.0); HGB 14.4 g/dL (13.5-17.5); MCHC 33.8 % (32.0-36.0); MCV 89 fL (80-95); Platelet Count 251 10^3/uL (130-400); RDW 13.2 % (11.8-14.1); RDW-SD 43.2 fL; WBC 6.27 10^3/uL (4.4-10.8)
== END 2024-09-05 08:27 | disposition home or self-care (01) ==
LOC: NCHCN 08:26
PROVIDERS: PCP Internal Medicine; Visit Provider Internal Medicine
DX: E78.5 Hyperlipidemia, unspecified (principal); I10 Essential (primary) hypertension
CPT/HCPCS: 80053; 80061; 83721; 85027

== ENCOUNTER 2025-01-17 13:26 | Outpatient (REF) | payer BC, SELFPAY ==
[2025-01-17 16:51] LABS: COMMENT (LAB VIEW ONLY) 152.91 mg/dL; Microalb ug/mg Crea 17.7 ug/mg Cr
== END 2025-01-17 13:27 | disposition home or self-care (01) ==
LOC: NCHCN 13:26
PROVIDERS: PCP Internal Medicine; Visit Provider Internal Medicine
DX: E11.9 Type 2 diabetes mellitus without complications (principal)
CPT/HCPCS: 82043; 82570

== ENCOUNTER 2025-09-26 10:20 | Outpatient (REF) | payer BC, SELFPAY ==
[2025-09-26 15:14] LABS: HCT 45.4 % (40.0-50.0); HGB 15.3 g/dL (13.5-17.5); MCH 29.1 pg (27.0-33.0); MCHC 33.7 % (32.0-36.0); MCV 86 fL (80-95); MPV 11.9 fL (8.0-11.0); Platelet Count 280 10^3/uL (130-400); RBC 5.26 10^6/uL (4.36-5.78); RDW 13.3 % (11.8-14.1); RDW-SD 41.1 fL; WBC 7.65 10^3/uL (4.4-10.8)
[2025-09-26 15:15] LABS: ALT 25 U/L (16-63); Albumin 4.4 g/dL (3.4-5.0); Alkaline Phosphatase 70 U/L (46-116); Anion Gap 10.6 mmol/L (3-11); BUN 16 mg/dL (7-18); Bilirubin, Total 0.5 mg/dL (0.2-1.0); CO2 28.4 mmol/L (21.0-32.0); Calcium 9.4 mg/dL (8.5-10.1); Chloride 101 mmol/L (98-107); Estimated GFR 89.44 (mL/min/1.73m2); Glucose 175 mg/dL (74-106); Potassium 4.3 mmol/L (3.5-5.1); Sodium 140 mmol/L (136-145); Total Protein 7.9 g/dL (6.4-8.2); Uric Acid 6.5 mg/dL (3.5-7.2)
[2025-09-26 16:01] LABS: Hemoglobin A1C 6.9 % (<5.7)
[2025-09-26 16:19] LABS: AST 14 U/L (15-37)
== END 2025-09-26 10:21 | disposition home or self-care (01) ==
LOC: NCHCN 10:20
PROVIDERS: PCP Internal Medicine; Visit Provider Internal Medicine
DX: M10.9 Gout, unspecified (principal); I10 Essential (primary) hypertension; E11.9 Type 2 diabetes mellitus without complications
CPT/HCPCS: 80053; 85027; 83036; 84550

== ENCOUNTER → 2025-10-02 00:53 | Outpatient (CLI) | payer BC, SELFPAY ==
--- NOTE | 2025-10-02 09:31 | DI.RAD_ITS ---
Exam(s) XR FOOT RT COMPLETE EXAM: XR FOOT RT COMPLETE CLINICAL HISTORY: ACUTE PAIN RT FOOT, M79.671,SWELLING 2ND TOE, MTP JOINT. TECHNIQUE: 2D digital imaging was performed of the right foot. Three images were obtained. AP, oblique and lateral views were obtained. COMPARISON: There are no priors for comparison. FINDINGS: BONES: No fracture line is identified. There is however mild periosteal thickening around the proximal metaphysis of the proximal phalanx of the 2nd toe. Healing/occult fracture is suspected. No bony destructive lesion is seen. JOINTS: There is a dorsal dislocation of the 2nd MTP joint. There is a hallux valgus deformity. There are mild degenerative changes seen in the foot particularly at the 1st MTP joint. SOFT TISSUE: There is soft tissue swelling of the forefoot and the 2nd toe. IMPRESSION: 1. Dorsal dislocation of the 2nd MTP joint. 2. Periosteal reaction around the proximal metaphysis of the proximal phalanx of the 2nd toe suspicious for healing fracture. 3. Soft tissue swelling of the forefoot and the 2nd toe. DATA REPOSITORY: RADIATION DOSE DELIVERED:
== END ==
PROVIDERS: PCP Internal Medicine; Visit Provider Internal Medicine
DX: M79.671 Pain in right foot (principal)
CPT/HCPCS: 73630